=== PATIENT | female | born 1945 | race Caucasian/White ===

== ENCOUNTER → 2020-07-01 | Outpatient (CLI) | payer OTHER ==
[~2020-07-01] MED LIST: ASPIR 8181 MG PO; LIPITOR TAB 2020 MG PO
== END ==
LOC: KOH-I 11:35
DX: M25.511 Pain in right shoulder (principal); M19.011 Primary osteoarthritis, right shoulder; I25.10 Atherosclerotic heart disease of native coronary artery without angina pectoris
CPT/HCPCS: 73030

== ENCOUNTER → 2020-07-05 | Outpatient (CLI) | payer OTHER | LOC: EXRD 11:30 | DX: I25.10 Atherosclerotic heart disease of native coronary artery without angina pectoris (principal); I65.23 Occlusion and stenosis of bilateral carotid arteries | CPT/HCPCS: 93880 ==

== ENCOUNTER → 2021-03-20 | Outpatient (CLI) | payer OTHER | LOC: OPSV 09:04 → CT 11:30 | DX: I65.29 Occlusion and stenosis of unspecified carotid artery (principal); I10 Essential (primary) hypertension; J32.0 Chronic maxillary sinusitis | CPT/HCPCS: 36415; 70498; 82565; 84520; 96360; 96361; Q9967 ==

== ENCOUNTER → 2022-03-27 | Outpatient (CLI) | payer OTHER | LOC: CT 03-24 08:00 | DX: I65.23 Occlusion and stenosis of bilateral carotid arteries (principal) | CPT/HCPCS: 36415; 70496; 70498; 82565; 84520; Q9967 ==